=== PATIENT | female | born 1955 | race Caucasian/White ===

== ENCOUNTER 2017-01-07 14:54 | Observation (INO) | payer MEDICAID ==
[~2017-01-07] VITALS: Ht 167.6 cm; Wt 46.0 kg
[~2017-01-07 14:54] MED LIST: BENA12.5 PO; HYDR-3535 PO; KLYTECL PO; TEMA7.5C9 PO
[2017-01-07 14:56] VITALS: BP 129/69; PULSE 86; RESP 19; TEMP 97.8; O2SAT 93
[2017-01-07 15:02] VITALS: BP 110/75; PULSE 96; RESP 18; TEMP 98.3; O2SAT 97
[2017-01-07 18:29] VITALS: BP 174/83; PULSE 87; RESP 18; O2SAT 97
--- NOTE | 2017-01-07 19:28 | PD ---
HPI Chief Complaint: ENT Complaint Time Seen by Provider: 19:10 Travel History International Travel<30 days: No Contact w/Intl Traveler<30days: No Traveled to known affect area: No History of Present Illness HPI The patient is a 61 year old female who presents to the [facility] emergency department with a history of difficulty swallowing solid began approximately 2 months ago. She reports that it recurred shortly after having a stricture in her esophagus dilated. The patient reports that she's had an esophageal stricture dilated twice in the past. She reports that this is complications from radiation therapy on her stop it is related to esophageal cancer. On 7 weeks of radiation therapy, [address] rounds [address] Dr[address] Helton.. The patient has a feeding tube in place. She reports that she is able to swallow liquids, however 3 weeks ago she also developed a 3 day history where she could not even swallow liquids, however this did seem to spontaneously resolved. She reports that she is able to drink Edgar and other fluids by mouth, however no solids. She reports that she has been supplementing her nutrition by her feeding tube with Jevity. The patient reports that when she tries to eat solids she throws up. She reports that she has esophageal pain when she tries to eat solids. She denies having any shortness of breath. She denies having any cough or congestion. She reports that she last moved her bowels yesterday. She denies having any blood in her stool or black or tarry stools. The patient reports that she does have a pelvic mass that has also received radiation therapy and will be surgically resected in the future. She reports that she last drank alcohol last night. She reports that she's decrease her alcohol intake to 2 beers per day. She cannot recall when she last used cocaine. She reports that she smokes one pack of cigarettes per day. The patient denies any recent fevers, neck pain, chest pain, shortness of breath, abdominal pain, diarrhea, urinary symptoms, or neurologic symptoms. [facility] Past Medical History Narrative Medical The past medical history is significant for esophageal cancer, pelvic mass, COPD , alcohol abuse, tobacco abuse, cocaine use, history of seizure disorder Cancer: Yes (esophageal w radiation and chemo, pelvic) Cardiovascular Problems: No Chemotherapy: Yes (and radiation) COPD: Yes Diabetes: No Diminished Hearing: No Endocrine: No Gastrointestinal Disorders: Yes (PEG TUBE) Genitourinary: Yes (bladder, pelvis cancer, ureteral obstruction, uti) Hepatitis: No Hiatal Hernia: No Immune Disorder: No Implanted Vascular Access Dvce: Yes (RIGHT CHEST PORT) Medical other: Yes (DYSPHAGIA) Musculoskeletal: Yes (bilateral "dislocated knees") Neurologic: No Psychiatric: No Reproductive: No Respiratory: Yes (copd) Thyroid Disease: Yes (NODULE) Tetanus Vaccination: Unknown Influenza Vaccination: No Past Surgical History Narrative Surgical The patient's past surgical history is significant for hysterectomy. Abdominal Surgery: Yes (FEEDING TUBE PLACEMENT) AICD: No Cardiac Surgery: No Ear Surgery: No Endocrine Surgery: No Eye Surgery: No Genitourinary Surgery: Yes (NEPHR TUBE) Gynecologic Surgery: Yes (HYSTERECTOMY) Hysterectomy: Yes (COMPLETE) Joint Replacement: No Oral Surgery: No Pacemaker: No Thoracic Surgery: No Other Surgery: Yes Social History Alcohol Use: Yes (2 beers per day.) Tobacco Use: Yes (1PPD) Substance Use: No Allergies-Medications (Allergen,Severity, Reaction): Coded Allergies: Novocain (Verified Allergy, Severe, 01/07/17) Reported Meds & Prescriptions Reported Meds & Active Scripts Active Effervescent Potassium Chloride 25 Meq (Potassium Bicarb/Potassium Chloride) 25 Meq Tab 25 Meq PO DAILY Reported Benadryl Allergy Children Liq (Diphenhydramine HCl) 12.5 Mg/5 Ml Liq 12.5 Mg PO Q6H PRN Restoril (Temazepam) 7.5 Mg Cap Unknown Dose PO HS PRN Lortab (Hydrocodone-Acetaminophen) 10-325 Mg Tab 1 Tab PO Q4H PRN Review of Systems Except as stated in HPI: all other systems reviewed are Neg General / Constitutional: No: Fever Eyes: No: Visual changes HENT: No: Headaches Cardiovascular: No: Chest Pain or Discomfort Respiratory: No: Shortness of Breath Gastrointestinal: Positive: Vomiting, Other (dysphagia), No: Diarrhea, Abdominal Pain Genitourinary: No: Dysuria Musculoskeletal: No: Pain Skin: No Rash Neurologic: No: Weakness, Focal Abnormalities, Coordination Problem, Change in Mentation, Slurred Speech, Sensory Disturbance Psychiatric: No: Depression Endocrine: No: Polydipsia Hematologic/Lymphatic: No: Easy Bruising Physical Exam Narrative General: The patient is a well-developed, thin appearing female in no acute distress. Head and Neck exam: Head is normocephalic atraumatic. Eyes: EOMI, pupils are equal round and reactive to light. Nose: Midline septum with pink mucous membranes Mouth: Dentition unremarkable. Tacky mucus membranes. Posterior oropharynx is not erythematous. No tonsillar hypertrophy. Uvula midline. Airway patent. Neck: No palpable lymphadenopathy. No nuchal rigidity. No thyromegaly. Cardiovascular: Regular rate and rhythm without murmurs, gallops, or rubs. Lungs: Clear to auscultation bilaterally. No wheezes, rhonchi, or rales. Abdomen: Soft, without tenderness to palpation in all 4 quadrants of the abdomen. No guarding, rebound, or rigidity. Normal bowel sounds are audible. The patient has a feeding tube in place in the left upper quadrant of the abdomen that appears to be in good repair without any signs of erythema or drainage. Extremities: No clubbing, cyanosis, or edema. 2+ pulses in all 4 extremities. No calf tenderness on palpation. Back: No spinous process tenderness to palpation. No costovertebral angle tenderness to palpation. Neurologic Exam: Grossly nonfocal. Skin Exam: No rash noted. Intact skin that is warm and dry. Data Data Last Documented VS Vital Signs Date Time Temp Pulse Resp B/P Pulse Ox O2 Delivery O2 Flow Rate FiO2 01/07/17 19:46 83 16 155/86 96 Room Air 01/07/17 14:56 97.8 Orders Electrocardiogram (01/07/17 19:11) Complete Blood Count With Diff (01/07/17 19:11) Comprehensive Metabolic Panel (01/07/17 19:11) Prothrombin Time / Inr (Pt) (01/07/17 19:11) Act Partial Throm Time (Ptt) (01/07/17 19:11) Lipase (01/07/17 19:11) Urinalysis - C+S If Indicated (01/07/17 19:11) Magnesium (Mg) (01/07/17 19:11) Chest, Single Ap (01/07/17 19:11) Iv Access Insert/Monitor (01/07/17 19:11) Ecg Monitoring (01/07/17 19:11) Oximetry (01/07/17 19:11) Creatine Kinase (Cpk) (01/07/17 19:11) Ckmb (Isoenzyme) Profile (01/07/17 19:11) Troponin I (01/07/17 19:11) Sodium Chlorid 0.9% 500 Ml Inj (Ns 500 M (01/07/17 20:00) Pantoprazole Inj (Protonix Inj) (01/07/17 20:15) Place In Observation (01/07/17 ) Vital Signs (Adult) Q4H (01/07/17 20:34) Activity Oob With Assistance (01/07/17 20:34) Skein Washer / Telemetry .CONTINUOUS (01/07/17 20:34) Diet Npo (01/08/17 Breakfast) Sodium Chlor 0.9% 1000 Ml Inj (Ns 1000 M (01/07/17 20:34) Sodium Chloride 0.9% Flush (Ns Flush) (01/07/17 20:45) Sodium Chloride 0.9% Flush (Ns Flush) (01/07/17 21:00) Ondansetron Inj (Zofran Inj) (01/07/17 20:45) Basic Metabolic Panel (Bmp) (01/08/17 06:00) Complete Blood Count With Diff (01/08/17 06:00) Enoxaparin Inj (Lovenox Inj) (01/08/17 09:00) Naloxone Inj (Narcan Inj) (01/07/17 20:45) Admit Order (Ed Use Only) (01/07/17 20:33) Consult Gastroenterology (01/07/17 ) Labs Laboratory Tests Test 01/07/17 19:35 White Blood Count 4.8 TH/MM3 Red Blood Count 3.18 MIL/MM3 Hemoglobin 10.8 GM/DL Hematocrit 31.3 % Mean Corpuscular Volume 98.4 FL Mean Corpuscular Hemoglobin 34.0 PG Mean Corpuscular Hemoglobin 34.5 % Concent Red Cell Distribution Width 12.5 % Platelet Count 261 TH/MM3 Mean Platelet Volume 6.4 FL Neutrophils (%) (Auto) 69.5 % Lymphocytes (%) (Auto) 18.1 % Monocytes (%) (Auto) 9.6 % Eosinophils (%) (Auto) 2.4 % Basophils (%) (Auto) 0.4 % Neutrophils # (Auto) 3.3 TH/MM3 Lymphocytes # (Auto) 0.9 TH/MM3 Monocytes # (Auto) 0.5 TH/MM3 Eosinophils # (Auto) 0.1 TH/MM3 Basophils # (Auto) 0.0 TH/MM3 CBC Comment DIFF FINAL Differential Comment Prothrombin Time 10.5 SEC Prothromb Time International 1.0 RATIO Ratio Activated Partial 27.3 SEC Thromboplast Time Sodium Level 133 MEQ/L Potassium Level 3.8 MEQ/L Chloride Level 98 MEQ/L Carbon Dioxide Level 28.3 MEQ/L Anion Gap 7 MEQ/L Blood Urea Nitrogen 11 MG/DL Creatinine 1.03 MG/DL Estimat Glomerular Filtration 54 ML/MIN Rate Random Glucose 96 MG/DL Calcium Level 8.5 MG/DL Magnesium Level 1.9 MG/DL Total Bilirubin 0.3 MG/DL Aspartate Amino Transf 11 U/L (AST/SGOT) Alanine Aminotransferase 12 U/L (ALT/SGPT) Alkaline Phosphatase 86 U/L Total Creatine Kinase 40 U/L Troponin I LESS THAN 0.02 NG/ML Total Protein 7.4 GM/DL Albumin 3.5 GM/DL Lipase 74 U/L MDM Medical Decision Making Medical Screen Exam Complete: Yes Emergency Medical Condition: Yes Medical Record Reviewed: Yes Interpretation(s) Laboratory Tests Test 01/07/17 19:35 White Blood Count 4.8 TH/MM3 Red Blood Count 3.18 MIL/MM3 Hemoglobin 10.8 GM/DL Hematocrit 31.3 % Mean Corpuscular Volume 98.4 FL Mean Corpuscular Hemoglobin 34.0 PG Mean Corpuscular Hemoglobin 34.5 % Concent Red Cell Distribution Width 12.5 % Platelet Count 261 TH/MM3 Mean Platelet Volume 6.4 FL Neutrophils (%) (Auto) 69.5 % Lymphocytes (%) (Auto) 18.1 % Monocytes (%) (Auto) 9.6 % Eosinophils (%) (Auto) 2.4 % Basophils (%) (Auto) 0.4 % Neutrophils # (Auto) 3.3 TH/MM3 Lymphocytes # (Auto) 0.9 TH/MM3 Monocytes # (Auto) 0.5 TH/MM3 Eosinophils # (Auto) 0.1 TH/MM3 Basophils # (Auto) 0.0 TH/MM3 CBC Comment DIFF FINAL Differential Comment Prothrombin Time 10.5 SEC Prothromb Time International 1.0 RATIO Ratio Activated Partial 27.3 SEC Thromboplast Time Sodium Level 133 MEQ/L Potassium Level 3.8 MEQ/L Chloride Level 98 MEQ/L Carbon Dioxide Level 28.3 MEQ/L Anion Gap 7 MEQ/L Blood Urea Nitrogen 11 MG/DL Creatinine 1.03 MG/DL Estimat Glomerular Filtration 54 ML/MIN Rate Random Glucose 96 MG/DL Calcium Level 8.5 MG/DL Magnesium Level 1.9 MG/DL Total Bilirubin 0.3 MG/DL Aspartate Amino Transf 11 U/L (AST/SGOT) Alanine Aminotransferase 12 U/L (ALT/SGPT) Alkaline Phosphatase 86 U/L Total Creatine Kinase 40 U/L Troponin I LESS THAN 0.02 NG/ML Total Protein 7.4 GM/DL Albumin 3.5 GM/DL Lipase 74 U/L Last Impressions Chest X-Ray 01/07/171910 Signed Impressions: Service Date/Time: Saturday, January 07, 2017 19:24 - CONCLUSION: No evidence of acute cardiopulmonary disease. Alfredo Davey MD Differential Diagnosis Dehydration, versus electrolyte abnormality, versus esophageal stricture, versus acid reflux Narrative Course During the course of the patients emergency department visit, the patients history, examination, and differential diagnosis were reviewed with the patient. The patient had IV access obtained and blood work sent for analysis. The patient was placed on a clinical research monitor with oximetry and blood pressure monitoring. A call was placed out to Dr. Helton regarding this patient's evaluation as she reports that she was sent in for admission by Dr. Helton's office. I spoke to regarding this patient's case. He was not familiar with the patient reports that he was not given any checkout from Dr. Helton regarding this patient. He recommended evaluation and if she was deemed necessary for admission, admission to the hospitalist service. The patient had an EKG done on arrival. The patient's EKG shows a sinus rhythm heart rate of 73 , no acute ST segment elevation is noted. T waves are inverted in V1, no acute ST segment depression. The patient was provided normal saline a 500 mL bolus 1. The patients laboratory studies were reviewed and remarkable for a CMP that is remarkable for sodium of 133, creatinine 1.03 which is slightly increased compared to previously, CPK is 40, troponin I less than 0.02, lipase 74, CBC shows a white count of 4.8, hemoglobin 10.8, platelets 261 with monocytes 9.6, PT PTT unremarkable Radiology studies were reviewed and remarkable for a chest x-ray that reveals no evidence of acute cardiopulmonary disease. The patients results were discussed with the patient, including the plan of care. I explained that further testing and/ or monitoring is indicated based on the patients history, examination, and/ or laboratory findings. Therefore, I recommended admission for additional evaluation. The patient expressed understanding and was agreeable with this plan. The patient was admitted to the hospital in stable condition and [facility] Physician Communication Physician Communication I spoke to Dr. Hayes at approximate 7:30 PM regarding this patient's case. He reports that the patient's case was not checked out to him by Dr. Helton. He was not familiar with the patient. The patient's case was discussed with Dr. Corey who did agree to admit the patient for further evaluation and treatment at this time. Diagnosis Primary Impression: Dysphagia Qualified Code: R13.14 - Esophageal dysphagia Additional Impression: Dehydration Admitting Information Admitting Physician Requests: Observation Christina Toledo MD Jan 07, 2017 19:28
--- NOTE | 2017-01-07 19:39 | RADRPT ---
EXAM DATE/TIME: 01/07/2017 19:24 [facility] COMPARISON: CT THORAX W CONTRAST, April 03, 2016, 17:46. INDICATIONS : Chest discomfort. Patient hasnt been able to eat solid foods for the past two months. MEDICAL HISTORY : Carcinoma, esophageal. Chronic obstructive pulmonary disease. Seizures. Smoker SURGICAL HISTORY : Infusaport. G-tube. ENCOUNTER: Initial ACUITY: 2 months PAIN SCORE: 4/10 LOCATION: Bilateral chest FINDINGS: A single view of the chest demonstrates the lungs to be symmetrically aerated without evidence of mas s, infiltrate or effusion. The cardiomediastinal contours are unremarkable. Old left rib fractures a re again noted. There is a right internal jugular [id number]-j-[id number] catheter with tip in the superior vena cava. CONCLUSION: No evidence of acute cardiopulmonary disease. Alfredo Davey MD on January 07, 2017 at 19:37 Board Certified Radiologist. This report was verified electronically.
[2017-01-07 19:46] VITALS: BP 155/86; PULSE 83; RESP 16; O2SAT 96
[2017-01-07 19:46] LABS: AUTOMATED NEUTROPHIL # 3.3 TH/MM3 (1.8-7.7); BASOPHIL % 0.4 % (0.0-2.0); EOSINOPHIL # 0.1 TH/MM3 (0-0.4); EOSINOPHIL % 2.4 % (0.0-4.0); HEMATOCRIT 31.3 % (35.0-46.0); HEMO FLAGS DIFF FINAL; LYMPH % 18.1 % (9.0-44.0); LYMPHOCYTE # 0.9 TH/MM3 (1.0-4.8); MEAN CELL VOLUME 98.4 FL (80.0-100.0); MEAN CORPUSCULAR HGB CONC 34.5 % (32.0-36.0); MONO % 9.6 % (0.0-8.0); NEUT % 69.5 % (16.0-70.0); PLATELET COUNT 261 TH/MM3 (150-450); RED BLOOD COUNT 3.18 MIL/MM3 (4.00-5.30); RED CELL DISTRIBUTION WIDTH 12.5 % (11.6-17.2); WHITE BLOOD COUNT 4.8 TH/MM3 (4.0-11.0)
[2017-01-07 19:55] LABS: APTT (PATIENT) 27.3 SEC (24.3-30.1); PROTHROMBIN TIME - PATIENT 10.5 SEC (9.8-11.6)
[2017-01-07] MEDS ORDERED: SODIUM CHLORID 0.9% 500 ML INJ 500 ML IV ONE (20:00)
[2017-01-07 20:02] LABS: ANION GAP 7 MEQ/L (5-15); AST (GOT) 11 U/L (15-37); BICARBONATE 28.3 MEQ/L (21.0-32.0); BLOOD UREA NITROGEN 11 MG/DL (7-18); CHLORIDE 98 MEQ/L (98-107); GLOMERULAR FILTRATION RATE 54 ML/MIN (>89); MAGNESIUM 1.9 MG/DL (1.5-2.5); POTASSIUM 3.8 MEQ/L (3.5-5.1); SODIUM (NA) 133 MEQ/L (136-145)
[2017-01-07 20:07] LABS: ALKALINE PHOSPHATASE 86 U/L (45-117); ALT (GPT) 12 U/L (10-53); TOTAL BILIRUBIN ADULT 0.3 MG/DL (0.2-1.0)
[2017-01-07 20:11] LABS: CREATINE KINASE 40 U/L (26-192)
[2017-01-07] MEDS ORDERED: PANTOPRAZOLE SODIUM 40 MG VIAL IV PUSH ONE (20:15)
[2017-01-07] MEDS ORDERED: NALOXONE HCL 0.4 MG/ML AMP IV PRN (20:45)
[2017-01-07] MEDS ORDERED: ONDANSETRON HCL 4 MG/2 ML VIAL IVP PRN (20:45)
[2017-01-07] MEDS: SODIUM CHLORIDE 0.9% FLUSH 5 ML FLUSH FLUSH SCH (21:00)
[2017-01-07] MEDS: SODIUM CHLOR 0.9% 1000 ML INJ 1,000 ML IV SCH (21:49)
[2017-01-07 22:22] VITALS: PULSE 84
[2017-01-07 22:32] LABS: BLOOD, URINE NEG (NEG); GLUCOSE,URINE NEG (NEG); KETONE, URINE NEG (NEG); NITRITE,URINE NEG (NEG); URINE COLOR COLORLESS (YELLW/STRAW)
[2017-01-07 22:33] LABS: COMMENT (UR) CULT NOT INDICATED; CULTURE IF INDICATED CULT NOT INDICATED
[2017-01-07 23:00] VITALS: BP 161/70; PULSE 68; RESP 18; TEMP 97.8; O2SAT 98
[2017-01-07] MEDS: REMOVE OLD NICODERM (NICOTINE) PATCH TD SCH (23:00)
--- NOTE | 2017-01-07 23:21 | HHI.HP ---
[facility] Admission Diagnosis Dysphagia, mild dehydration, h/o esophageal stricture Diagnoses: (1) Dysphagia (2) Odynophagia (3) Hyponatremia (4) Renal insufficiency, mild (5) Anemia (6) Tobacco abuse Chief Complaint: dysphagia with odynophagia Travel History International Travel<30 Days: No Contact w/Intl Traveler <30 Da: No Traveled to Known Affected Are: No History of Present Illness Ms. Banegas is a 61 year-old female with a history of squamous cell esophageal cancer, squamous cell cancer involving pelvic mass, severe dysphagia, odynophagia, esophageal strictures with dilatation 2 over the past several weeks, G-tube placement, alcohol and drug abuse, COPD, hyponatremia, seizures related to ETOH, cocaine, and hyponatremia, and chronic lower back pain who is admitted for dysphagia with possible need for another esophageal dilatation. The patient is seen in the observation unit. She reports being very thirsty and states she is able to drink fluids without any difficulty. She states she has been having increasing difficulty eating foods and has had successful esophageal dilatations in the past with ability to eat regular, normal foods after her second dilatation. She states over the past few days she's been unable to eat and is disappointed that she is likely having another episode of esophageal stricture. She has been supplementing with Jevity or Osmolite tube feeding and her G-tube one can 3 times a day. She denies fever, chills, shortness of breath, chest pain, dyspnea on exertion, black stools, bloody stool , nausea, vomiting or abdominal pain. . Review of Systems Constitutional: DENIES: Fever, Chills Respiratory: DENIES: Shortness of breath Cardiovascular: DENIES: Chest pain, Dyspnea on Exertion Gastrointestinal: DENIES: Abdominal pain, Black stools, Bloody stools, Nausea, Vomiting Except as stated in HPI: all other systems reviewed are Neg Past Family Social History Past Medical History Squamous cell esophageal cancer and associated with pelvic mass (both cancers were diagnosed in March 2016 and treated with chemotherapy and radiation) Severe dysphagia Iodine aphasia Esophageal strictures with dilatation 2 Alcohol abuse Drug abuse COPD Hyponatremia Seizures related to ETOH, cocaine, and hyponatremia with hospitalization 2015 4 days Chronic lower back pain . Past Surgical History Bilateral dislocated knee repair Hysterectomy - BOBBY with BSO 1998 Left pelvic mass biopsy 03/2016 Esophageal biopsy 03/2016 G-tube placement 2015 [id number] placement in 2015 Nephrostomy tube Reported Medications Reported Meds & Active Scripts Active Effervescent Potassium Chloride 25 Meq (Potassium Bicarb/Potassium Chloride) 25 Meq Tab 25 Meq PO DAILY Reported Benadryl Allergy Children Liq (Diphenhydramine HCl) 12.5 Mg/5 Ml Liq 12.5 Mg PO Q6H PRN Restoril (Temazepam) 7.5 Mg Cap Unknown Dose PO HS PRN Lortab (Hydrocodone-Acetaminophen) 10-325 Mg Tab 1 Tab PO Q4H PRN . Allergies: Coded Allergies: Novocain (Verified Allergy, Severe, 01/07/17) Active Ordered Medications Current Medications Sodium Chloride (NS 500 ml Inj) 500 ml @ 500 mls/hr BOLUS ONCE IV Last administered on 01/07/17 21:49; Start 01/07/17 at 20:00; Stop 01/07/17 at 20:59 ; Status DC Pantoprazole Sodium 40 mg 40 mg ONCE ONCE IV PUSH Last administered on 21:49; Start 01/07/17 at 20:15; Stop 01/07/17 at 20:16; Status DC Sodium Chloride (NS 1000 ml Inj) 1,000 ml @ 100 mls/hr Q10H IV Last administered on 01/07/17 21:49; Start 01/07/17 at 20:34 IV Flush (NS Flush) 2 ml UNSCH PRN FLUSH FLUSH AFTER USING IV ACCESS; Start at 20:45 IV Flush (NS Flush) 2 ml BID FLUSH ; Start 01/07/17 at 21:00 Ondansetron HCl (Zofran Inj) 4 mg Q6H PRN IVP NAUSEA OR VOMITING; Start at 20:45 Enoxaparin Sodium (Lovenox Inj) 40 mg Q24H SQ ; Start 01/08/17 at 09:00 Naloxone HCl (Narcan Inj) 0.4 mg UNSCH PRN IV SEE LABEL COMMENTS; Start at 20:45 Morphine Sulfate (Morphine Inj) 2 mg Q3H PRN IV PUSH pain >5; Start 01/07/17 at 20:45 . Family History Brought forward from EMR - patient denies any family medical problems during our visit today Father age 88 from myocardial infarction Mother age 74 of myocardial infarction Sister with multiple sclerosis . Social History Tobacco: Smokes 1 pack per day for 40+ years Alcohol: History of alcohol abuse; reports drinking "occasionally" Illicit Drugs: History of cocaine abuse . Physical Exam Vital Signs Vital Signs Date Time Temp Pulse Resp B/P Pulse Ox O2 Delivery O2 Flow Rate FiO2 01/07/17 23:00 97.8 68 18 161/70 98 01/07/17 22:22 84 01/07/17 19:46 83 16 155/86 96 Room Air 01/07/17 18:29 18 01/07/17 18:29 87 18 174/83 97 Room Air 01/07/17 14:56 97.8 86 19 129/69 93 Room Air Physical Exam GENERAL: This is a thin, chronically ill-appearing patient, in no apparent distress. SKIN: No rashes, ecchymoses or lesions. Cool and dry. HEAD: Atraumatic. Normocephalic. EYES: No scleral icterus. No injection or drainage. ENT: Nose without bleeding, purulent drainage. NECK: Trachea midline. No JVD or lymphadenopathy. CARDIOVASCULAR: Regular rate and rhythm without murmurs, gallops, or rubs. RESPIRATORY: Clear to auscultation. Breath sounds equal bilaterally. No wheezes , rales, or rhonchi. GASTROINTESTINAL: Abdomen soft, non-tender, nondistended. No guarding. G-tube secured to abdomen. MUSCULOSKELETAL: Extremities without clubbing, cyanosis, or edema. No calf tenderness. NEUROLOGICAL: Awake and alert. Motor and sensory grossly within normal limits. Normal speech. . Laboratory Laboratory Tests Test 01/07/17 01/07/17 19:35 22:17 White Blood Count 4.8 Red Blood Count 3.18 Hemoglobin 10.8 Hematocrit 31.3 Mean Corpuscular Volume 98.4 Mean Corpuscular Hemoglobin 34.0 Mean Corpuscular Hemoglobin 34.5 Concent Red Cell Distribution Width 12.5 Platelet Count 261 Mean Platelet Volume 6.4 Neutrophils (%) (Auto) 69.5 Lymphocytes (%) (Auto) 18.1 Monocytes (%) (Auto) 9.6 Eosinophils (%) (Auto) 2.4 Basophils (%) (Auto) 0.4 Neutrophils # (Auto) 3.3 Lymphocytes # (Auto) 0.9 Monocytes # (Auto) 0.5 Eosinophils # (Auto) 0.1 Basophils # (Auto) 0.0 CBC Comment DIFF FINAL Differential Comment Prothrombin Time 10.5 Prothromb Time International 1.0 Ratio Activated Partial 27.3 Thromboplast Time Sodium Level 133 Potassium Level 3.8 Chloride Level 98 Carbon Dioxide Level 28.3 Anion Gap 7 Blood Urea Nitrogen 11 Creatinine 1.03 Estimat Glomerular Filtration 54 Rate Random Glucose 96 Calcium Level 8.5 Magnesium Level 1.9 Total Bilirubin 0.3 Aspartate Amino Transf 11 (AST/SGOT) Alanine Aminotransferase 12 (ALT/SGPT) Alkaline Phosphatase 86 Total Creatine Kinase 40 Troponin I LESS THAN 0.02 Total Protein 7.4 Albumin 3.5 Lipase 74 Urine Color COLORLESS Urine Turbidity CLEAR Urine pH 7.0 Urine Specific Epes 1.002 Urine Protein NEG Urine Glucose (UA) NEG Urine Ketones NEG Urine Occult Blood NEG Urine Nitrite NEG Urine Bilirubin NEG Urine Urobilinogen LESS THAN 2.0 Urine Leukocyte Esterase NEG Urine RBC LESS THAN 1 Urine WBC LESS THAN 1 Microscopic Urinalysis Comment CULT NOT INDICATED Result Diagram: 01/07/17193401/07/171934 Imaging Last Impressions Chest X-Ray 01/07/171910 Signed Impressions: Service Date/Time: Saturday, January 07, 2017 19:24 - CONCLUSION: No evidence of acute cardiopulmonary disease. Alfredo Davey MD . Assessment and Plan Problem List: (1) Dysphagia ICD Code: R13.10 Status: Acute (2) Odynophagia ICD Code: R13.10 Status: Acute (3) Hyponatremia ICD Code: E87.1 Status: Chronic (4) Renal insufficiency, mild ICD Code: N28.9 Status: Acute (5) Anemia ICD Code: D64.9 Status: Chronic (6) Tobacco abuse ICD Code: Z72.0 Status: Chronic Assessment and Plan Ms. Banegas is a 61 year-old female with a history of squamous cell esophageal cancer, squamous cell cancer involving pelvic mass, severe dysphagia, odynophagia, esophageal strictures with dilatation 2 over the past 2 months, G- tube placement who is admitted for dysphagia with possible need for another esophageal dilatation. Dysphagia with odynophagia likely secondary to esophageal stricture - Consult gastroenterology - Morphine 2 mg IV push every 3 hours as needed for pain - Nothing by mouth - Has a G-tube for artificial nutrition; uses Jevity or Osmolyte 1 can three times daily at home to supplement feedings will restart but wait until after GI evaluation as they may decide to proceed with endoscopy/dilatation Hyponatremia, chronic - Admitting sodium 133 is stable compared to prior labs - Recheck sodium level in a.m. and follow trends Mild renal insufficiency - BUN normal at 11, creatinine slightly elevated at 1.03, estimated GFR low at 54 - Recheck BMP in a.m. and follow trends - Avoid nephrotoxins Anemia, chronic - likely secondary to alcohol abuse - Hemoglobin 10.8 hematocrit 31.3 on admission - relatively stable compared to previous visits - Recheck CBC in a.m. and follow trends - Transfuse if needed Tobacco Abuse - recommended cessation; patient states she's not ready to quit Denies daily alcohol use - Will placed on withdrawal precautions given patient's history of daily alcohol use as recorded in EMR DVT prophylaxis - Lovenox 40 mg subcutaneous every 24 hours Written by Emely Castro, acting as scribe for Dr. Corey on 01/07/17 at 23:21. The documentation accurately reflects the work performed [id number] by me on at [id number]. . Discussed Condition With patient, ER physician, and RN Problem Qualifiers (1) Dysphagia: Qualified Code: R13.14 - Esophageal dysphagia Emely Castro Jan 07, 2017 23:21 Trina Corey MD Jan 08, 2017 08:31
[2017-01-07] MEDS: TEMAZEPAM 15 MG CAP PO PRN (23:40)
[2017-01-07] MEDS: NICOTINE 21 MG/24 HR PATCH TD SCH (23:55)
[2017-01-08] VITALS (7 sets, daily range): BP systolic 137–170; BP diastolic 68–77; PULSE 66–93; RESP 16–18; TEMP 97.1–98.6; O2SAT 93–99
[2017-01-08] MEDS: MORPHINE SULFATE 4 MG/ML INJ IV PUSH PRN ×5 (00:36→19:49)
[2017-01-08] MEDS: SODIUM CHLORIDE 0.9% FLUSH 5 ML FLUSH FLUSH PRN ×3 (02:24→19:49)
[2017-01-08 05:09] LABS: AUTOMATED NEUTROPHIL # 2.7 TH/MM3 (1.8-7.7); BASOPHIL % 0.4 % (0.0-2.0); EOSINOPHIL # 0.1 TH/MM3 (0-0.4); EOSINOPHIL % 3.2 % (0.0-4.0); HEMATOCRIT 29.1 % (35.0-46.0); HEMO FLAGS DIFF FINAL; LYMPH % 19.5 % (9.0-44.0); LYMPHOCYTE # 0.8 TH/MM3 (1.0-4.8); MEAN CELL VOLUME 98.1 FL (80.0-100.0); MEAN CORPUSCULAR HEMOGLOBIN 33.9 PG (27.0-34.0); MEAN CORPUSCULAR HGB CONC 34.6 % (32.0-36.0); MONO % 12.9 % (0.0-8.0); PLATELET COUNT 239 TH/MM3 (150-450); RED BLOOD COUNT 2.97 MIL/MM3 (4.00-5.30); RED CELL DISTRIBUTION WIDTH 12.8 % (11.6-17.2); WHITE BLOOD COUNT 4.2 TH/MM3 (4.0-11.0)
[2017-01-08 05:38] LABS: POTASSIUM 3.6 MEQ/L (3.5-5.1)
[2017-01-08] MEDS: SODIUM CHLOR 0.9% 1000 ML INJ 1,000 ML IV SCH ×2 (06:20→19:49)
[2017-01-08] MEDS ORDERED: ENOXAPARIN SODIUM 40 MG/0.4 ML SYRINGE SQ SCH (09:00)
[2017-01-08] MEDS: SODIUM CHLORIDE 0.9% FLUSH 5 ML FLUSH FLUSH SCH ×2 (09:00→19:49)
--- NOTE | 2017-01-08 09:14 | PD.CONS ---
HPI History of Present Illness This is a 61 year old female who came to the emergency room for evaluation of dysphagia. She was diagnosed with esophageal cancer in the mid thoracic esophagus and a pelvic mass on the left side back in March 2016. According to the oncology note, the histology of the two appeared different. She is status post treatment with carboplatin and Taxol and radiation. She reports that she completed these couple months ago although she cannot give the exact date. She underwent a PET scan on August 15, 2016 which showed that this esophageal mass was gone and the pelvic mass decreased from 7.2 x 4.6 cm to 2.3 x 2.8 cm. The patient reports that the plan was to be evaluated by surgery to have the pelvic mass removed. She reports that this has not been done yet. The patient has a G-tube that was placed back and she was getting radiation. She has also had several esophageal dilatations in the past. Her last EGD with dilatation was (10/26/16) and this revealed a mild esophageal stricture which was dilated, it was recommended that she take Prilosec 20 mg twice a day and repeat endoscopy with dilatation in 6 months. The patient reports that for the past 2 months she's been having difficulty swallowing. She is able to swallow liquids without any difficulty. However, if she takes any solid foods they become lodged in her mid esophageal area. She is not able to get this down with sips of water and will have to vomit the food bolus backup. She denies any heartburn , abdominal pain, bowel changes, melena, hematochezia. She has a feeding tube and she takes 2-3 cans of Jevity or Osmolite per day. She denies any fevers or chills. PFSH Past Medical History COPD Dysphagia Esophageal stricture Esophageal cancer, squamous cell carcinoma Pelvic Mass. Hyponatremia Seizure from EtOH/cocaine/hyponatremia Dysphagia Migraines Past Surgical History Bilateral dislocated knee repair Hysterectomy - BOBBY with BSO 1997 Left pelvic mass biopsy 03/2016 Esophageal biopsy 03/2016 G-tube placement 2015 [id number] placement in 2015 Nephrostomy tube Cystoscopy EGD with dilatation Coded Allergies: Novocain (Verified Allergy, Severe, 01/07/17) Medications Allergies Coded Allergies Type Severity Reaction Last Updated Verified Novocain Allergy Severe 01/07/17 Yes Active Scripts Medications Dose Route/Sig Days Date Category Benadryl Allergy Children Liq (Diphenhydramine HCl) 12.5 Mg/5 Ml Liq 12.5 Mg PO Q6H PRN 10/26/16 Reported Restoril (Temazepam) 7.5 Mg Cap Unknown Dose PO HS PRN 10/25/16 Reported Lortab (Hydrocodone-Acetaminophen) 10-325 Mg Tab 1 Tab PO Q4H PRN 10/25/16 Reported Effervescent Potassium Chloride 25 Meq (Potassium Bicarb/Potassium Chloride) 25 Meq Tab 25 Meq PO DAILY 10/02/16 Rx Family History Father age 88 from myocardial infarction Mother age 74 of myocardial infarction Sister with multiple sclerosis . Social History Smokes 1 pack per day for 40+ years History of alcohol abuse; reports drinking "occasionally" History of cocaine abuse . Review of Systems Constitutional: COMPLAINS OF: Fatigue, DENIES: Fever, Weight loss, Chills, Change in appetite Respiratory: DENIES: Cough, Shortness of breath Cardiovascular: DENIES: Chest pain Gastrointestinal: COMPLAINS OF: Vomiting, Difficulty Swallowing, DENIES: Abdominal pain, Black stools, Bloody stools, Constipation, Diarrhea, Nausea, Heartburn Genitourinary: DENIES: Urgency, Hematuria, Dysuria Musculoskeletal: COMPLAINS OF: Back pain Integumentary: DENIES: Abnormal pigmentation Hematologic/lymphatic: DENIES: Bruising Neurologic: COMPLAINS OF: Headache Psychiatric: DENIES: Confusion GI Exam Vitals I&O Vital Signs Date Time Temp Pulse Resp B/P Pulse Ox O2 Delivery O2 Flow Rate FiO2 01/08/17 08:18 98.0 78 18 151/69 93 01/08/17 00:37 66 01/07/17 23:00 97.8 68 18 161/70 98 01/07/17 19:46 83 16 155/86 96 Room Air 01/07/17 18:29 18 01/07/17 18:29 87 18 174/83 97 Room Air 01/07/17 14:56 97.8 86 19 129/69 93 Room Air Imaging Last Impressions Chest X-Ray 01/07/17 1911 Signed Impressions: Service Date/Time: Saturday, January 07, 2017 19:24 - CONCLUSION: No evidence of acute cardiopulmonary disease. Alfredo Davey MD Laboratory Test 01/07/17 01/07/17 01/08/17 19:35 22:17 04:45 White Blood Count 4.8 TH/MM3 4.2 TH/MM3 Red Blood Count 3.18 MIL/MM3 2.97 MIL/MM3 Hemoglobin 10.8 GM/DL 10.1 GM/DL Hematocrit 31.3 % 29.1 % Mean Corpuscular Volume 98.4 FL 98.1 FL Mean Corpuscular Hemoglobin 34.0 PG 33.9 PG Mean Corpuscular Hemoglobin 34.5 % 34.6 % Concent Red Cell Distribution Width 12.5 % 12.8 % Platelet Count 261 TH/MM3 239 TH/MM3 Mean Platelet Volume 6.4 FL 6.5 FL Neutrophils (%) (Auto) 69.5 % 64.0 % Lymphocytes (%) (Auto) 18.1 % 19.5 % Monocytes (%) (Auto) 9.6 % 12.9 % Eosinophils (%) (Auto) 2.4 % 3.2 % Basophils (%) (Auto) 0.4 % 0.4 % Neutrophils # (Auto) 3.3 TH/MM3 2.7 TH/MM3 Lymphocytes # (Auto) 0.9 TH/MM3 0.8 TH/MM3 Monocytes # (Auto) 0.5 TH/MM3 0.5 TH/MM3 Eosinophils # (Auto) 0.1 TH/MM3 0.1 TH/MM3 Basophils # (Auto) 0.0 TH/MM3 0.0 TH/MM3 CBC Comment DIFF FINAL DIFF FINAL Differential Comment Prothrombin Time 10.5 SEC Prothromb Time International 1.0 RATIO Ratio Activated Partial 27.3 SEC Thromboplast Time Sodium Level 133 MEQ/L 138 MEQ/L Potassium Level 3.8 MEQ/L 3.6 MEQ/L Chloride Level 98 MEQ/L 105 MEQ/L Carbon Dioxide Level 28.3 MEQ/L 26.0 MEQ/L Anion Gap 7 MEQ/L 7 MEQ/L Blood Urea Nitrogen 11 MG/DL 10 MG/DL Creatinine 1.03 MG/DL 0.97 MG/DL Estimat Glomerular Filtration 54 ML/MIN 58 ML/MIN Rate Random Glucose 96 MG/DL 86 MG/DL Calcium Level 8.5 MG/DL 8.6 MG/DL Magnesium Level 1.9 MG/DL Total Bilirubin 0.3 MG/DL Aspartate Amino Transf 11 U/L (AST/SGOT) Alanine Aminotransferase 12 U/L (ALT/SGPT) Alkaline Phosphatase 86 U/L Total Creatine Kinase 40 U/L Troponin I LESS THAN 0.02 NG/ML Total Protein 7.4 GM/DL Albumin 3.5 GM/DL Lipase 74 U/L Urine Color COLORLESS Urine Turbidity CLEAR Urine pH 7.0 Urine Specific [place] 1.002 Urine Protein NEG mg/dL Urine Glucose (UA) NEG mg/dL Urine Ketones NEG mg/dL Urine Occult Blood NEG Urine Nitrite NEG Urine Bilirubin NEG Urine Urobilinogen LESS THAN 2.0 MG/DL Urine Leukocyte Esterase NEG Urine RBC LESS THAN 1 /hpf Urine WBC LESS THAN 1 /hpf Microscopic Urinalysis Comment CULT NOT INDICATED Physical Examination HEENT: Normocephalic; atraumatic; no jaundice. CHEST: CTA CARDIAC: RRR ABDOMEN: Soft, nondistended, nontender; no hepatosplenomegaly; bowel sounds are present in all four quadrants. PEG clamped EXTREMITIES: No clubbing, cyanosis, or edema. SKIN: Normal; no rash; no jaundice. HEEL BUFFER: No focal deficits; alert and oriented times three. Assessment and Plan Plan ASSESSMENT: - Dysphagia. Pt with hx of esophageal cancer (SCC), s/p tx with carboplatin and Taxol and radiation. States a few months ago. She has hx of esophageal strictures and has PEG tube in place. Last EGD with dilatation was (10/26/16 ) and this revealed a mild esophageal stricture which was dilated, it was recommended that she take Prilosec 20 mg twice a day and repeat endoscopy with dilatation in 6 months. The patient reports that for the past 2 months she's been having difficulty swallowing. She is able to swallow liquids without any difficulty. Solid foods they become lodged in her mid esophageal area. - Esophageal Cancer, SCC and pelvic mass, thought to be two separate pathologies. s/p tx with carboplatin and Taxol and radiation. PET scan on August 15, 2016 which showed that this esophageal mass was gone and the pelvic mass decreased from 7.2 x 4.6 cm to 2.3 x 2.8 cm. The patient reports that the plan was to be evaluated by surgery to have the pelvic mass removed. She reports that this has not been done yet. Sees Dr. Helton. - Anemia. . No active blood loss. PLAN: - Plan for EGD with dilatation today - Obtain consent - Nothing by mouth - Hold Lovenox - PPI - Supportive care - Further recommendations to follow based on results of above - Patient seen and examined by Dr. De La Garza and myself in this note is written on his behalf Audrye Smith Jan 08, 2017 09:14
[2017-01-08] MEDS ORDERED: MORPHINE SULFATE 4 MG/ML INJ IV ONE (11:15)
[2017-01-08] MEDS ORDERED: PROPOFOL 200 MG/20 ML AMP IV ONE (12:36)
--- NOTE | 2017-01-08 14:41 | HHI.PR ---
Subjective Remarks Follow up for dysphagia. The patient is seen s/p EGD with dilatation. She has some chest discomfort post procedure. She has not yet attempted oral intake. She has been supplementing her intake at home with Osmolite and Jevity 2-3 cans per day. Objective Vitals Vital Signs Date Time Temp Pulse Resp B/P Pulse Ox O2 Delivery O2 Flow Rate FiO2 01/08/17 13:05 72 16 145/82 94 01/08/17 13:00 71 16 148/82 94 01/08/17 12:55 98.0 72 16 141/75 95 01/08/17 11:48 98.0 78 18 151/69 93 01/08/17 08:18 98.0 78 18 151/69 93 01/08/17 00:37 66 01/07/17 23:00 97.8 68 18 161/70 98 01/07/17 19:46 83 16 155/86 96 Room Air 01/07/17 18:29 18 01/07/17 18:29 87 18 174/83 97 Room Air 01/07/17 14:56 97.8 86 19 129/69 93 Room Air I/O 01/07/17 01/07/17 01/07/17 01/08/17 01/08/17 01/08/17 07:00 15:00 23:00 07:00 15:00 23:00 Intake Total 750 ml Balance 750 ml Intake IV Total 750 ml # Voids 1 Result Diagram: 01/08/175 01/08/17 0445 Imaging Last Impressions Chest X-Ray 01/07/17 1911 Signed Impressions: Service Date/Time: Saturday, January 07, 2017 19:24 - CONCLUSION: No evidence of acute cardiopulmonary disease. Alfredo Davey MD Objective Remarks GENERAL: Well-nourished, well-developed female patient in [facility]. SKIN: Warm and dry. No rash. HEAD: Normocephalic. Atraumatic. EYES: Pupils equal and round. No scleral icterus. No injection or drainage. ENT: No nasal bleeding or discharge. Mucous membranes pink and moist. NECK: Supple. Trachea midline. CARDIOVASCULAR: Regular rate and rhythm. S1, S2 noted. No murmur appreciated. RESPIRATORY: No accessory muscle use. Clear to auscultation. Breath sounds equal bilaterally. GASTROINTESTINAL: Abdomen soft, non-tender, nondistended. Normoactive bowel sounds x4. MUSCULOSKELETAL: No obvious deformities. Extremities without clubbing, cyanosis , or edema. NEUROLOGICAL: Awake and alert. No obvious cranial nerve deficits. Motor grossly within normal limits. Normal speech. PSYCHIATRIC: Appropriate mood and affect; insight and judgment normal. Procedures 01/08/17 - EGD with dilatation Medications and IVs Current Medications Medications (Trade) Dose Ordered Sig/Leila Route Start Time Stop Time Status Last Admin (NS 1000 ml Inj) 1,000 ml @ 100 mls/hr Q10H IV 01/07/17 20:34 01/08/17 06:20 (NS Flush) 2 ml UNSCH PRN FLUSH 01/07/17 20:45 01/08/17 06:21 (NS Flush) 2 ml BID FLUSH 01/07/17 21:00 (Zofran Inj) 4 mg Q6H PRN IVP 01/07/17 20:45 (Lovenox Inj) 40 mg Q24H SQ 01/08/17 09:00 Hold (Narcan Inj) 0.4 mg UNSCH PRN IV 01/07/17 20:45 (Morphine Inj) 2 mg Q3H PRN IV PUSH 01/07/17 20:45 01/08/17 06:20 (Restoril) 15 mg HS PRN PO 01/07/17 23:30 01/07/17 23:40 (Habitrol 21 Mg Patch.24 Hr) 1 patch Q24H TD 01/07/17 23:00 01/07/17 23:55 Miscellaneous Information 1 Q24H TD 01/07/17 23:00 A/P Problem List: (1) Dysphagia ICD Code: R13.10 Status: Acute (2) Odynophagia ICD Code: R13.10 Status: Acute (3) Hyponatremia ICD Code: E87.1 Status: Chronic (4) Renal insufficiency, mild ICD Code: N28.9 Status: Acute (5) Anemia ICD Code: D64.9 Status: Chronic (6) Tobacco abuse ICD Code: Z72.0 Status: Chronic Assessment and Plan 61 year-old female with a history of squamous cell esophageal cancer, squamous cell cancer involving pelvic mass, severe dysphagia, odynophagia, esophageal strictures with dilatation 2 over the past 2 months, G-tube placement who is admitted for dysphagia with possible need for another esophageal dilatation. Dysphagia, Esophageal Stricture - Consult gastroenterology - EGD with dilatation done 01/08 - Mechanical soft diet per GI - check gastrograffin swallow eval to ensure no leak post procedure - IV Morphine prn pain - Has a G-tube for supplemental nutrition; uses Jevity or Osmolyte 1 can 2-3x/ day at home Hyponatremia, chronic - Admitting sodium 133 is stable compared to prior labs - Repeat Na 138, resolved. Mild renal insufficiency - BUN normal at 11, creatinine slightly elevated at 1.03, estimated GFR low at 54 - Repeat Cr 0.97, resolved - Avoid nephrotoxins Anemia, chronic - likely secondary to alcohol abuse - Hemoglobin 10.8 hematocrit 31.3 on admission - relatively stable compared to previous visits - Monitor CBC, currently stable - Transfuse if needed Tobacco Abuse - recommended cessation; patient states she's not ready to quit Denies daily alcohol use - Placed on withdrawal precautions given patient's history of daily alcohol use as recorded in EMR DVT prophylaxis - Lovenox Written by Anne Marie Rivas, acting as scribe for Dr. Trujillo on 01/08/17 at 14:49. The documentation accurately reflects the work performed [id number] by me on at 14:49. Problem Qualifiers (1) Dysphagia: Qualified Code: R13.14 - Esophageal dysphagia Anne Marie Rivas PA-C Jan 08, 2017 14:41 Marquis Trujillo DO Jan 08, 2017 18:03
[2017-01-08] MEDS ORDERED: DIATRIZOATE MEGLUM/DIATRIZOATE SOD 120 ML BTL (for RAD DIAG) PO ONE (16:08)
--- NOTE | 2017-01-08 16:38 | RADRPT ---
EXAM DATE/TIME: 01/08/2017 15:07 [place] COMPARISON: No previous studies available for comparison. INDICATIONS : Evaluate for leak post esophageal dilation FLUORO TIME: 1.5 minutes IMAGE COUNT: 8 CONTRAST: 1. Gastrografin (Diatrizoate Meglumine and Diatrizoate Sodium) MEDICAL HISTORY : throat cancer SURGICAL HISTORY : hx of multiple esophageal dilations ENCOUNTER: Initial ACUITY: 1 day PAIN SCORE: 10/10 LOCATION: Bilateral neck FINDINGS: Examination of the esophagus demonstrates the swallowing function to be normal. There is no evidence of aspiration or penetration. The body of the esophagus is unremarkable. The esophageal transit ti me is normal. In the supine position there is no evidence of mass or external compression. No hiatal hernia is paige ntified. No reflux is seen. The stomach is grossly unremarkable. No extraluminal contrast extravasa tion CONCLUSION: No perforation. Unremarkable barium swallow. Paddy Rodas MD on January 08, 2017 at 16:36 Board Certified Radiologist. This report was verified electronically.
[2017-01-08] MEDS: NICOTINE 21 MG/24 HR PATCH TD SCH (22:57)
[2017-01-08] MEDS: REMOVE OLD NICODERM (NICOTINE) PATCH TD SCH (23:00)
[2017-01-09] MEDS: TEMAZEPAM 15 MG CAP PO PRN (00:47)
[2017-01-09] MEDS: MORPHINE SULFATE 4 MG/ML INJ IV PUSH PRN ×4 (00:47→13:07)
[2017-01-09 03:34] VITALS: BP 151/71; PULSE 92; RESP 16; TEMP 96.9; O2SAT 96
[2017-01-09] MEDS: SODIUM CHLOR 0.9% 1000 ML INJ 1,000 ML IV SCH ×2 (04:58→13:07)
[2017-01-09] MEDS: SODIUM CHLORIDE 0.9% FLUSH 5 ML FLUSH FLUSH PRN (04:58)
--- NOTE | 2017-01-09 07:05 | EKG ---
Date Performed: 01/07/2017 Time Performed: 19:27:00 PTAGE: 61 years EKG: Sinus rhythm Repolarization abnormality PREVIOUS TRACING : 09/28/2016 17.54 DOCTOR: Timothy Ibarra Interpretating Date/Time 01/09/2017 07:03:55
[2017-01-09] MEDS: SODIUM CHLORIDE 0.9% FLUSH 5 ML FLUSH FLUSH SCH (07:57)
[2017-01-09 08:00] VITALS: PULSE 76
[2017-01-09 08:13] VITALS: BP 170/78; PULSE 80; RESP 18; TEMP 98; O2SAT 94
--- NOTE | 2017-01-09 08:36 | HHI.PR ---
Subjective Remarks Follow up for dysphagia, esophageal stricture s/p dilatation 01/08. The patient reports continued epigastric/chest pain since her dilatation. She states she has had this same pain previously after her dilatation and it usually goes away in a couple of days. Pain well controlled with pain medications. She was able to tolerate soups, Ensure, and soft foods last night. She does not feel she needs to supplement with tube feeds. She wants to go home this afternoon. Discussed with the nurse. Objective Vitals Vital Signs Date Time Temp Pulse Resp B/P Pulse Ox O2 Delivery O2 Flow Rate FiO2 01/09/17 08:13 98.0 80 18 170/78 94 01/09/17 05:06 16 01/09/17 03:34 96.9 92 16 151/71 96 01/08/17 23:33 98.6 76 16 97 01/08/17 20:53 97.1 93 16 137/68 99 01/08/17 19:20 80 01/08/17 16:35 75 18 170/77 95 01/08/17 13:05 72 16 145/82 94 01/08/17 13:00 71 16 148/82 94 01/08/17 12:55 98.0 72 16 141/75 95 01/08/17 11:48 98.0 78 18 151/69 93 I/O 01/08/17 01/08/17 01/08/17 01/09/17 01/09/17 01/09/17 07:00 15:00 23:00 07:00 15:00 23:00 Intake Total 750 ml 500 ml 360 ml Balance 750 ml 500 ml 360 ml Intake Oral 500 ml 360 ml IV Total 750 ml # Voids 2 4 # Bowel Movements 1 0 Result Diagram: 01/08/17 0445 01/08/17 0445 Imaging Last Impressions Upper GI/Barium Swallow X-Ray 01/08/17 0000 Signed Impressions: Service Date/Time: Sunday, January 08, 2017 15:07 - CONCLUSION: No perforation. Unremarkable barium swallow. Paddy Rodas MD Chest X-Ray 01/07/17 1911 Signed Impressions: Service Date/Time: Saturday, January 07, 2017 19:24 - CONCLUSION: No evidence of acute cardiopulmonary disease. Alfredo Davey MD Objective Remarks GENERAL: Well-nourished, well-developed female patient in [facility]. SKIN: Warm and dry. No rash. HEENT: Normocephalic. Atraumatic. Pupils equal and round. No scleral icterus. No injection or drainage. Mucous membranes pink and moist. NECK: Supple. Trachea midline. CARDIOVASCULAR: Regular rate and rhythm. S1, S2 noted. No murmur appreciated. RESPIRATORY: No accessory muscle use. Clear to auscultation. Breath sounds equal bilaterally. GASTROINTESTINAL: Abdomen soft, non-tender, nondistended. Normoactive bowel sounds x4. MUSCULOSKELETAL: No obvious deformities. Extremities without clubbing, cyanosis , or edema. NEUROLOGICAL: Awake and alert. No obvious cranial nerve deficits. Motor grossly within normal limits. Normal speech. PSYCHIATRIC: Appropriate mood and affect; insight and judgment normal. Procedures 01/08/17 - EGD with dilatation Medications and IVs Current Medications Medications (Trade) Dose Ordered Sig/Leila Route Start Time Stop Time Status Last Admin (NS 1000 ml Inj) 1,000 ml @ 100 mls/hr Q10H IV 01/07/17 20:34 01/09/17 04:58 (NS Flush) 2 ml UNSCH PRN FLUSH 01/07/17 20:45 01/09/17 04:58 (NS Flush) 2 ml BID FLUSH 01/07/17 21:00 01/09/17 07:57 (Zofran Inj) 4 mg Q6H PRN IVP 01/07/17 20:45 (Lovenox Inj) 40 mg Q24H SQ 01/08/17 09:00 Hold (Narcan Inj) 0.4 mg UNSCH PRN IV 01/07/17 20:45 (Morphine Inj) 2 mg Q3H PRN IV PUSH 01/07/17 20:45 01/09/17 07:56 (Restoril) 15 mg HS PRN PO 01/07/17 23:30 01/09/17 00:47 (Habitrol 21 Mg Patch.24 Hr) 1 patch Q24H TD 01/07/17 23:00 01/08/17 22:57 Miscellaneous Information 1 Q24H TD 01/07/17 23:00 A/P Problem List: (1) Dysphagia ICD Code: R13.10 Status: Acute (2) Odynophagia ICD Code: R13.10 Status: Acute (3) Hyponatremia ICD Code: E87.1 Status: Chronic (4) Renal insufficiency, mild ICD Code: N28.9 Status: Acute (5) Anemia ICD Code: D64.9 Status: Chronic (6) Tobacco abuse ICD Code: Z72.0 Status: Chronic Assessment and Plan 61 year-old female with a history of squamous cell esophageal cancer, squamous cell cancer involving pelvic mass, severe dysphagia, odynophagia, esophageal strictures with dilatation 2 over the past 2 months, G-tube placement who is admitted for dysphagia with possible need for another esophageal dilatation. Dysphagia, Esophageal Stricture - Consulted gastroenterology - EGD with dilatation done 01/08 - Mechanical soft diet per GI - gastrograffin swallow eval negative for leak - IV Morphine prn pain - Has a G-tube for supplemental nutrition; uses Jevity or Osmolyte 1 can 2-3x/ day at home Hyponatremia, chronic - Admitting sodium 133 is stable compared to prior labs - Repeat Na 138, resolved. Mild renal insufficiency - BUN normal at 11, creatinine slightly elevated at 1.03, estimated GFR low at 54 - Repeat Cr 0.97, resolved - Avoid nephrotoxins Anemia, chronic - likely secondary to alcohol abuse - Hemoglobin 10.8 hematocrit 31.3 on admission - relatively stable compared to previous visits - Monitor CBC, currently stable - Transfuse if needed Tobacco Abuse - recommended cessation; patient states she's not ready to quit Denies daily alcohol use - Placed on withdrawal precautions given patient's history of daily alcohol use as recorded in EMR DVT prophylaxis - Lovenox Discussed with Dr. Burger and brush machine setter Planning Likely discharge if patient tolerates lunch today. Discussed with Audrey GONZALEZ and Dr. Burger. Discharge patient to home Condition on discharge: Improved Regular Mechanical Soft Diet as tolerated, supplement with tube feeds Ad Fabi activity Rx written: [place] liquid prn Follow-up with primary care physician and gastroenterology Attending Statement Patient seen and examined on date of service. Discussed with physician's commercial loan assistant. Agree with above. Problem Qualifiers (1) Dysphagia: Qualified Code: R13.14 - Esophageal dysphagia Anne Marie Rivas PA-C Jan 09, 2017 08:36 Moiz Burger MD Jan 09, 2017 22:49
--- NOTE | 2017-01-09 09:47 | HHI.GIFU ---
Subjective Remarks Pt s/p EGD & dilation, sitting in bed, just finished eating cheerios. She had cream soup and sherbet last night and it did not come back up. her appetite is good, no n/v, or abd pain. She has some soreness in chest area that is improving since dilation. She says she is ready to go home. Objective Vitals I&O Vital Signs Date Time Temp Pulse Resp B/P Pulse Ox O2 Delivery O2 Flow Rate FiO2 01/09/17 08:13 98.0 80 18 170/78 94 01/09/17 05:06 16 01/09/17 03:34 96.9 92 16 151/71 96 01/08/17 23:33 98.6 76 16 97 01/08/17 20:53 97.1 93 16 137/68 99 01/08/17 19:20 80 01/08/17 16:35 75 18 170/77 95 01/08/17 13:05 72 16 145/82 94 01/08/17 13:00 71 16 148/82 94 01/08/17 12:55 98.0 72 16 141/75 95 01/08/17 11:48 98.0 78 18 151/69 93 I/O 01/08/17 01/08/17 01/08/17 01/09/17 01/09/17 01/09/17 07:00 15:00 23:00 07:00 15:00 23:00 Intake Total 750 ml 500 ml 360 ml Balance 750 ml 500 ml 360 ml Intake Oral 500 ml 360 ml IV Total 750 ml # Voids 2 4 # Bowel Movements 1 0 Laboratory Allergies Coded Allergies Type Severity Reaction Last Updated Verified Novocain Allergy Severe 01/07/17 Yes Active Scripts Medications Dose Route/Sig Days Date Category Benadryl Allergy Children Liq (Diphenhydramine HCl) 12.5 Mg/5 Ml Liq 12.5 Mg PO Q6H PRN 10/26/16 Reported Restoril (Temazepam) 7.5 Mg Cap Unknown Dose PO HS PRN 10/25/16 Reported Lortab (Hydrocodone-Acetaminophen) 10-325 Mg Tab 1 Tab PO Q4H PRN 10/25/16 Reported Effervescent Potassium Chloride 25 Meq (Potassium Bicarb/Potassium Chloride) 25 Meq Tab 25 Meq PO DAILY 10/02/16 Rx Imaging Last Impressions Upper GI/Barium Swallow X-Ray 01/08/17 0000 Signed Impressions: Service Date/Time: Sunday, January 08, 2017 15:07 - CONCLUSION: No perforation. Unremarkable barium swallow. Paddy Rodas MD Chest X-Ray 01/07/17 1911 Signed Impressions: Service Date/Time: Saturday, January 07, 2017 19:24 - CONCLUSION: No evidence of acute cardiopulmonary disease. Alfredo Davey MD Physical Exam HEENT: normocephalic; atraumatic; no jaundice. CHEST: CTA CARDIAC: RRR ABDOMEN: Soft, nondistended, mild tenderness around PEG tube; no hepatosplenomegaly; bowel sounds are present in all four quadrants. EXTREMITIES: No clubbing, cyanosis, or edema. SKIN: Normal; no rash; no jaundice. BREAD JOCKEY: No focal deficits; alert and oriented times three. Assessment and Plan Plan ASSESSMENT: - Dysphagia improved. Pt with hx of esophageal cancer (SCC), s/p tx with carboplatin and Taxol and radiation. States a few months ago. She has hx of esophageal strictures and has PEG tube in place. Had EGD with dilation of large stricture 01/08/17 and ate full liquid dinner that evening and solid food this morning with no regurgitation, nausea or vomiting. Upper GI/Barium Swallow X-Ray 01/08/17-------> No perforation. Unremarkable barium swallow. - Esophageal Cancer, SCC and pelvic mass, thought to be two separate pathologies. s/p tx with carboplatin and Taxol and radiation. PET scan on August 15, 2016 which showed that this esophageal mass was gone and the pelvic mass decreased from 7.2 x 4.6 cm to 2.3 x 2.8 cm. The patient reports that the plan was to be evaluated by surgery to have the pelvic mass removed. She reports that this has not been done yet. Sees Dr. Helton. - Anemia. .1 No active blood loss. PLAN: - okay to d/c from GI standpoint - pt to f/u in office - PPI - Supportive care - Patient seen and examined by Dr. De La Garza and myself in this note is written on his behalf Audrey Smith Jan 09, 2017 09:47
[2017-01-09] MEDS ORDERED: HYDR1SOL3 PO (11:05)
--- NOTE | 2017-01-09 13:09 | HHI.DCPOC ---
Discharge Care Plan Diagnosis: (1) S/P dilatation of esophageal stricture Goals to Promote Your Health * To prevent worsening of your condition and complications * To maintain your health at the optimal level Directions to Meet Your Goals Take your medications as prescribed Follow your dietary instruction Follow activity as directed Keep your appointments as scheduled Take your immunizations and boosters as scheduled If your symptoms worsen call your PCP, if no PCP go to Urgent Care Center or Emergency Room Smoking is Dangerous to Your Health. Avoid second hand smoke Call the 24-hour hour crisis hotline for domestic abuse at Anne Marie Rivas PA-C Jan 09, 2017 13:09
== END 2017-01-09 15:12 | disposition home or self-care (01) ==
LOC: NEPC 14:54 → NEDA 20:36 → NEPFCDU 23:12
PROVIDERS: ADMIT Internal Medicine; ATTEND Internal Medicine
DX: K22.2 Esophageal obstruction (principal); R13.14 Dysphagia, pharyngoesophageal phase; R63.3 Feeding difficulties; R19.00 Intra-abdominal and pelvic swelling, mass and lump, unspecified site; J44.9 Chronic obstructive pulmonary disease, unspecified; C15.9 Malignant neoplasm of esophagus, unspecified; E86.0 Dehydration; N28.9 Disorder of kidney and ureter, unspecified; E87.1 Hypo-osmolality and hyponatremia; F17.210 Nicotine dependence, cigarettes, uncomplicated; D64.9 Anemia, unspecified; Z93.1 Gastrostomy status
CPT/HCPCS: 00740; 43249; 71010; 74220; 80048; 80053; 81001; 82550; 83690; 83735; 84484; 85025; 85610; 85730; 93005; 99285; C1726; C9113; G0378; J2270; J7030; J7040; Q9963